=== PATIENT | male | born 1970 | race Native Hawaiian/Other Pacific Islander ===

== ENCOUNTER 2019-02-05 13:42 | Outpatient (CLI) | payer BC | END 2019-02-05 19:43 | disposition home or self-care (01) | LOC: RAD 13:42 | DX: M25.562 Pain in left knee (principal) ==

== ENCOUNTER 2019-03-01 11:02 | Outpatient (CLI) | payer BC | END 2019-03-01 23:30 | disposition home or self-care (01) | LOC: MRI 11:02 | DX: M25.562 Pain in left knee (principal) ==